=== PATIENT | male | born 1940 | race Caucasian/White ===

== ENCOUNTER 2019-05-21 10:03 | Day surgery (SDC) | payer OTHER ==
[2019-05-20 14:43] VITALS: BMI 30.7
[2019-05-21 12:13] VITALS: TEMP 97.5
[2019-05-21 13:03] VITALS: BP 125/69; PULSE 61
== END 2019-05-21 13:16 | disposition home or self-care (01) ==
LOC: JASU-ENDO 10:03
PROVIDERS: ATTEND Internal Medicine Gastroenterology
PROC: 0DBL8ZX Excision of Transverse Colon, Via Natural or Artificial Opening Endoscopic, Diagnostic (ICD-10-PCS; 2019-05-21)
PROC: 0DBH8ZX Excision of Cecum, Via Natural or Artificial Opening Endoscopic, Diagnostic (ICD-10-PCS; principal; 2019-05-21 11:00)
DX: Z86.010 Personal history of colon polyps (principal); D12.3 Benign neoplasm of transverse colon; D12.0 Benign neoplasm of cecum; K57.30 Diverticulosis of large intestine without perforation or abscess without bleeding; K64.8 Other hemorrhoids; I10 Essential (primary) hypertension; E11.9 Type 2 diabetes mellitus without complications; E78.00 Pure hypercholesterolemia, unspecified; N40.0 Benign prostatic hyperplasia without lower urinary tract symptoms; K21.9 Gastro-esophageal reflux disease without esophagitis
CPT/HCPCS: 88305-TC

== ENCOUNTER 2019-11-05 23:17 | Emergency (ER) | payer OTHER ==
[2019-11-05 23:57] VITALS: TEMP 97.9; BMI 31.6
--- NOTE | 2019-11-06 01:00 | PDOC ---
History of Present Illness - General Chief Complaint: CVA/TIA Stated Complaint: R SIDE FACE AND ARM FEELS NUM Time Seen by Provider: 11/06/19 01:00 - History of Present Illness Initial Comments: 79 year old male with PMHB of HTN, Hypercholesterolemia, BPH, and NIDDM presenting with 4 days of dry cough and headache that has started to radiate down his right arm. He also complained of some sort of strange sensation down his right arm which began 4 days ago as well. He states it all started in his forehead and fluctuates forma 5-7 in intensity and was particularly troublesome last night. His right arm pain and right sided headache are worsened with cough and right arm movement. Denies any chest pain, visual loss, nausea, vomiting, fevers, diarrhea, or other symptoms. He is functional and ambulatory at home. 11/06/19 01:18 NIH Stroke Scale - Initial Evaluation Level of consciousness: Alert Ask patient the month and their age: Answers both correctly Ask patient to open & close eyes; make fist and let go: Obeys both correctly Best gaze (horizontal eye movement): Normal Visual field testing: No visual field loss Facial paresis (Show teeth/raise eyebrows/close eyes tight): Normal symmetrical movement Motor Function: Left Arm: Normal Motor Function: Right Arm: Normal (extends arm 90 (or 45) degrees for 10 seconds without drift Motor Function: Left Leg: Normal (extends leg 30 degrees for 5 seconds without drift) Motor Function: Right Leg: Normal (extends leg 30 degrees for 5 seconds without drift) Limb Ataxia: No ataxia Sensory(Use pinprick test arms,legs,trunk,face/side to side): Normal Best language (Describe picture, name items, read sentences): No Aphasia Dysarthria (read several words): Normal articulation Extinction and Inattention: No abnormality - Total Score NIH Stroke Scale Score: 0 Past History - Past Medical History Allergies/Adverse Reactions: Allergies Allergy/AdvReac Type Severity Reaction Status Date / Time No Known Allergies Allergy Verified 11/05/19 23:56 Home Medications: Ambulatory Orders Omeprazole [Prilosec (RX)] 20 mg PO PRN PRN 01/02/16 Valsartan [Diovan] 320 mg PO DAILY 01/02/16 Atorvastatin Ca [Lipitor] 10 mg PO HS 05/20/19 Ranitidine [Zantac -] 150 mg PO PRN PRN 05/20/19 Tamsulosin HCl 0.4 mg PO DAILY 05/20/19 metFORMIN HCL [Metformin HCl] 500 mg PO BID 05/20/19 COPD: No Diabetes: Yes (NIDDM) GI Disorders: Yes (GERD, COLON POLYPS) Disorders: Yes (BPH) HTN: Yes Hypercholesterolemia: Yes - Surgical History Appendectomy: Yes - Psycho Social/Smoking Cessation Hx Smoking Status: No Smoking History: Never smoked Have you smoked in the past 12 months: No Number of Cigarettes Smoked Daily: 0 Information on smoking cessation initiated: No Hx Alcohol Use: No Drug/Substance Use Hx: No Substance Use Type: None Review of Systems - Review of Systems Constitutional: No: Chills, Diaphoresis, Fever, Loss of Appetite HEENTM: No: Eye Pain, Blurred Vision, Tearing, Ocular Prothesis Respiratory: No: Cough, Orthopnea, Shortness of Breath, Wheezing, Productive cough Cardiac (ROS): No: Chest Pain, Edema, Irregular Heart Rate, Lightheadedness, Palpitations, Syncope ABD/GI: No: Diarrhea, Nausea, Vomiting : No: Dysuria, Discharge, Frequency Musculoskeletal: No: Back Pain, Joint Pain, Joint Swelling Neurological: Yes: Headache, Paresthesia, Tingling. No: Numbness, Weakness Psychiatric: No: Anxiety, Depression Hematologic/Lymphatic: No: Anemia, Blood Clots, Easy Bleeding *Physical Exam - Vital Signs Last Vital Signs Temp Pulse Resp BP Pulse Ox 97.9 F 66 17 184/88 H 100 11/05/19 23:54 11/05/19 23:54 11/05/19 23:54 11/05/19 23:54 11/05/19 23:54 - Physical Exam General Appearance: Yes: Nourished, Appropriately Dressed. No: Apparent Distress HEENT: positive: EOMI, RENE, Normal Voice. negative: Normal ENT Inspection ( mild right temporal tenderness without palpable cord) Neck: positive: Trachea midline, Normal Thyroid, Supple. negative: Tender, Rigid Respiratory/Chest: positive: Lungs Clear, Normal Breath Sounds. negative: Chest Tender, Respiratory Distress, Accessory Muscle Use Cardiovascular: positive: Regular Rhythm, Regular Rate Gastrointestinal/Abdominal: positive: Normal Bowel Sounds, Flat, Soft. negative : Tender Lymphatic: negative: Adenopathy, Tenderness Musculoskeletal: positive: Normal Inspection. negative: Decreased Range of Motion Extremity: positive: Normal Capillary Refill, Normal Inspection, Normal Range of Motion. negative: Tender Integumentary: positive: Normal Color, Dry, Warm Neurologic: positive: keycase assembler II-XII NML intact, Fully Oriented, Alert, Normal Mood/ Affect, Normal Response, Motor Strength 02/24 ED Treatment Course - LABORATORY CBC & Chemistry Diagram: 11/06/19 02:30 11/06/19 02:30 Medical Decision Making - Medical Decision Making 79 year old male with right sided headache x4 days which started frontal and migrated down his right side to his arm with some mild paresthesias. Troponin negative, EKG demonstrating rate 57, WI 192, QRS 90, QTc 426, normal axis, with mild t wave flattening in anterior leads as compared to EKG from December 2015. Given the above, this is not likely itracranial process or NC. More likely to be headache secondary to moderate dehydration. Patient will be DC'd with Tylenol use instructions, hydration instructions, and return precautions. 11/06/19 03:41 Discharge - Discharge Information Problems reviewed: Yes Clinical Impression/Diagnosis: Headache Qualifiers: Headache type: unspecified Headache chronicity pattern: acute headache Intractability: not intractable Qualified Code(s): R51 - Headache Condition: Improved Disposition: HOME - Admission No - Follow up/Referral Referrals: Cheryl Benz MD [Primary Care Provider] - - Patient Discharge Instructions Patient Printed Discharge Instructions: DI for Headache Additional Instructions: Please drink plenty of water and use Tylenol every 4-6 hours as needed for your headache. Please see your PCP in one week. Please return to the ED if you have new or worsening symptoms. - Post Discharge Activity
--- NOTE | 2019-11-06 01:04 | PDOC ---
Attending Attestation - Resident Resident Name: Amanda Cornelius - ED Attending Attestation I have performed the following: I have examined & evaluated the patient, The case was reviewed & discussed with the resident, I agree w/resident's findings & plan - HPI HPI: 11/06/19 02:44 see resident hpi - Physicial Exam PE: 11/06/19 02:44 agree with resident exam - Medical Decision Making 11/06/19 02:44 79-year-old male with 4 days of right-sided headache right neck pain and some tingling down the right arm Symptoms were preceded by some coughing There is no associated trauma On reevaluation after Tylenol and Reglan patient only has some mild point tenderness over the right temporal region CT scan of the brain shows no acute abnormality The intermittent paresthesias associated with the right upper extremity are now resolved He is motor intact Plan for ESR and likely DC home pending results
[2019-11-06] MEDS ORDERED: SODIUM CHLORIDE 1,000 ML IV SCH (01:15)
[2019-11-06] MEDS ORDERED: ACETAMINOPHEN 1000 MG/100 ML VIAL (NON FORMULARY) IVPB ONE (01:16)
[2019-11-06] MEDS ORDERED: METOCLOPRAMIDE HCL 10 MG TABLET (FP) PO ONE (01:21)
[2019-11-06] MEDS ORDERED: METOCLOPRAMIDE HCL INJECTION 10 MG/2 ML VIAL ONE (01:25)
[2019-11-06] MEDS ORDERED: ACETAMINOPHEN INJECTION 100 ML IVPB ONE (01:25)
[2019-11-06 02:50] LABS: EOS % 3.5 % (0-4.5); HEMATOCRIT 44.2 % (35.4-49); HEMOGLOBIN 15.4 GM/dL (11.7-16.9); LYMPH % 23.3 % (8-40); MCH 33.1 pg (25.7-33.7); MCHC 34.8 g/dl (32.0-35.9); MEAN PLT VOLUME 7.8 fl (7.5-11.1); MONO % 10.5 % (3.8-10.2); NEUT % 61.7 % (42.8-82.8); PLATELET COUNT 168 K/MM3 (134-434); RBC 4.66 M/mm3 (4.00-5.60); RDW 14.2 % (11.9-15.9); WHITE BLOOD COUNT 4.6 K/mm3 (4.0-10.0)
[2019-11-06 03:21] LABS: ALBUMIN 3.9 g/dl (3.4-5.0); ALK PHOS 77 U/L (45-117); ANION GAP 7 MMOL/L (8-16); BILIRUBIN,TOTAL 0.6 mg/dL (0.2-1); BLOOD UREA NITROGEN 15.2 mg/dL (7-18); CALCIUM 8.9 mg/dL (8.5-10.1); CHLORIDE 106 mmol/L (98-107); CHOLESTEROL 165 mg/dL (50-200); CO2 26 mmol/L (21-32); CREATININE 0.9 mg/dL (0.55-1.3); GLUCOSE,RANDOM 148 mg/dL (74-106); HDL CHOLESTEROL 46 mg/dL (40-60); LDL CHOLESTEROL (ONLY SJRH) 106 mg/dL (5-100); POTASSIUM 3.9 mmol/L (3.5-5.1); SGOT/AST 19 U/L (15-37); SGPT/ALT 32 U/L (13-61); SODIUM 139 mmol/L (136-145); TOT PROT 6.9 g/dl (6.4-8.2); TRIGLYCERIDES 84 mg/dL (0-150)
[2019-11-06 03:35] LABS: ERYTHROCYTE SEDIMENTATION RATE 6 mm/hr (0-20)
[2019-11-06 04:43] VITALS: BP 162/79; PULSE 58
--- NOTE | 2019-11-06 09:52 | EKG ---
Test Reason : Blood Pressure : / mmHG Vent. Rate : 057 BPM Atrial Rate : 057 BPM P-R Int : 192 ms QRS Dur : 090 ms QT Int : 438 ms P-R-T Axes : 030 -02 000 degrees QTc Int : 426 ms SINUS BRADYCARDIA CANNOT RULE OUT ANTERIOR INFARCT , AGE UNDETERMINED ABNORMAL ECG WHEN COMPARED WITH ECG OF 02-JAN-2016 18:57, NO SIGNIFICANT CHANGE WAS FOUND Confirmed by KAREN DE LA CRUZ, SENDY ([id number]) on 11/06/2019 9:52:18 AM Referred By: Confirmed By:SENDY JONES MD
== END 2019-11-06 04:45 | disposition home or self-care (01) ==
LOC: JER 23:17
DX: R51 Headache (principal); I10 Essential (primary) hypertension; E78.00 Pure hypercholesterolemia, unspecified; E11.9 Type 2 diabetes mellitus without complications; Z79.84 Long term (current) use of oral hypoglycemic drugs; N40.0 Benign prostatic hyperplasia without lower urinary tract symptoms; Z86.010 Personal history of colon polyps; K21.9 Gastro-esophageal reflux disease without esophagitis
CPT/HCPCS: 36415; 70450-TC; 71045-TC-FY; 80053; 80061; 82550; 83721; 84484; 85025; 85651; 93005; 93010; 99283-25; J0131; J7030

== ENCOUNTER 2022-12-01 19:53 | Emergency (ER) | payer OTHER ==
[2022-12-01 19:59] VITALS: BP 125/77; PULSE 107; RESP 20; TEMP 98.9; BMI 26.6
[2022-12-01 22:59] LABS: EPI CELLS 3 /uL (0-25.1); HYALINE CASTS 0 /uL (0-3.1); URINE APPEARANCE CLEAR; URINE BACTERIA 2 /uL (0-1359); URINE BILIRUBIN NEGATIVE (NEGATIVE); URINE COLOR YELLOW; URINE GLUCOSE (UA) NEGATIVE (NEGATIVE); URINE KETONE TRACE (NEGATIVE); URINE LEUK ESTERASE TRACE (NEGATIVE); URINE NITRITE NEGATIVE (NEGATIVE); URINE PROTEIN NEGATIVE (NEGATIVE); URINE RBC 7 /uL (0-23.9); URINE UROBILINOGEN 0.2 mg/dL (0.2-1.0); URINE WBC 10 /uL (0-25.8)
[2022-12-01 23:07] LABS: BASO % 0.6 % (0-2.0); HEMATOCRIT 39.5 % (35.4-49); HEMOGLOBIN 13.4 GM/dL (11.7-16.9); LYMPH % 3.2 % (8-40); MCH 32.3 pg (25.7-33.7); MEAN CELL VOLUME 95.1 fl (80-96); MEAN PLT VOLUME 7.8 fl (7.5-11.1); MONO % 6.8 % (3.8-10.2); NEUT % 88.4 % (42.8-82.8); PLATELET COUNT 163 10^3/uL (134-434); RBC 4.16 M/mm3 (4.00-5.60); WHITE BLOOD COUNT 11.9 K/mm3 (4.0-10.0)
[2022-12-01 23:26] LABS: ALBUMIN 3.8 g/dl (3.4-5.0); CALCIUM 9.3 mg/dL (8.5-10.1)
[2022-12-01 23:27] LABS: BLOOD UREA NITROGEN 19.3 mg/dL (7-18)
[2022-12-01 23:30] LABS: CREATININE 1.2 mg/dL (0.55-1.3)
[2022-12-01 23:32] LABS: ANISOCYTOSIS 2+; BILIRUBIN,TOTAL 0.9 mg/dL (0.2-1); MACROCYTOSIS 0; OVALOCYTE 1+; TARGET CELLS 1+; TOT PROT 6.6 g/dl (6.4-8.2)
== END 2022-12-02 01:40 | disposition home or self-care (01) ==
LOC: JER 19:53
DX: R19.7 Diarrhea, unspecified (principal)
CPT/HCPCS: 36415; 74176-TC; 80053; 81003; 82962; 85025; 87086; 99284-25

== ENCOUNTER 2024-02-14 11:51 | Emergency (ER) | payer OTHER ==
[2024-02-14 12:04] VITALS: BP 157/75; PULSE 68; RESP 17; TEMP 97.1; BMI 28.2
[2024-02-14] MEDS ORDERED: KETOROLAC TROMETHAMINE 30 MG/1 ML VIAL ONE (14:12)
[2024-02-14] MEDS: KETOROLAC TROMETHAMINE 30 MG/1 ML VIAL IM ONE (14:20)
[2024-02-14] MEDS: SODIUM CHLORIDE 1,000 ML IV ONE (14:25)
[2024-02-14 14:44] LABS: URINE APPEARANCE CLEAR; URINE BILIRUBIN NEGATIVE (NEGATIVE); URINE COLOR YELLOW; URINE GLUCOSE (UA) 3+ (NEGATIVE); URINE KETONE NEGATIVE (NEGATIVE); URINE LEUK ESTERASE NEGATIVE (NEGATIVE); URINE NITRITE NEGATIVE (NEGATIVE); URINE PROTEIN NEGATIVE (NEGATIVE)
[2024-02-14 14:44] LABS: BASO % 1.2 % (0-2.0); EOS % 3.9 % (0-4.5); HEMATOCRIT 42.8 % (35.4-49); HEMOGLOBIN 14.7 GM/dL (11.7-16.9); LYMPH % 26.4 % (8-40); MCH 32.5 pg (25.7-33.7); MCHC 34.4 g/dl (32.0-35.9); MEAN CELL VOLUME 94.3 fl (80-96); MEAN PLT VOLUME 7.2 fl (7.5-11.1); MONO % 11.6 % (3.8-10.2); NEUT % 56.9 % (42.8-82.8); PLATELET COUNT 166 10^3/uL (134-434); RBC 4.54 M/mm3 (4.00-5.60); RDW 15.7 % (11.9-15.9); WHITE BLOOD COUNT 3.7 K/mm3 (4.0-10.0)
[2024-02-14 15:31] LABS: POTASSIUM 3.9 mmol/L (3.5-5.1)
[2024-02-14 15:34] LABS: BLOOD UREA NITROGEN 18.3 mg/dL (7-18); CALCIUM 9.1 mg/dL (8.5-10.1)
[2024-02-14 15:39] LABS: CREATININE 0.9 mg/dL (0.55-1.3)
== END 2024-02-14 17:27 | disposition home or self-care (01) ==
LOC: JERFT 11:51
PROC: 3E0233Z Introduction of Anti-inflammatory into Muscle, Percutaneous Approach (ICD-10-PCS; principal; 2024-02-14)
PROC: 3E0337Z Introduction of Electrolytic and Water Balance Substance into Peripheral Vein, Percutaneous Approach (ICD-10-PCS; 2024-02-14)
DX: R10.31 Right lower quadrant pain (principal); M54.6 Pain in thoracic spine; M54.50 Low back pain, unspecified
CPT/HCPCS: 36415; 74176-TC; 80048; 81003; 85025; 99284-25